=== PATIENT | female | born 1955 | race African-American/Black ===

== ENCOUNTER 2022-11-08 00:35 | Emergency (ER) | payer OTHER ==
[~2022-11-08] VITALS: Ht 177.8 cm; Wt 70.3 kg
--- NOTE | 2022-11-08 02:50 | NUR ---
[facility] HOME C/O BLISTER TO BACK SINCE LAST NT, FATIGUE, BODYACHE & EXHAUSTION. AAOX4, PLACED COMFORTABLY IN BED, VITALS CHECKED.
[2022-11-08] MEDS ORDERED: TRIA15OI2 TP (03:32)
[2022-11-08] MEDS ORDERED: VALA10002 PO (03:32)
--- NOTE | 2022-11-08 03:40 | NUR ---
Patient discharged to home in stable condition. Written and verbal after care instructions given. Patient verbalizes understanding of instruction.
[2022-11-08 03:48] VITALS: BP 139/69
== END 2022-11-08 03:52 | disposition home or self-care (01) ==
LOC: ER 00:41
DX: R21 Rash and other nonspecific skin eruption (principal); Z60.2 Problems related to living alone

== ENCOUNTER 2023-05-29 20:38 | Emergency (ER) | payer OTHER ==
[~2023-05-29] VITALS: Ht 177.8 cm; Wt 73.5 kg
[~2023-05-29 20:38] MED LIST: TRIA15OI2 TP; VALA10002 PO
[2023-05-29 23:54] VITALS: BP 139/72; TEMP 98.4; O2SAT 99
== END 2023-05-29 23:54 | disposition home or self-care (01) ==
LOC: ER 20:40
DX: R42 Dizziness and giddiness (principal); R20.2 Paresthesia of skin